=== PATIENT | female | born 2000 | race Caucasian/White ===

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

== ENCOUNTER 2021-02-14 19:38 | Emergency (ER) | payer OTHER ==
[~2021-02-14 19:38] MED LIST changes: +AUGMENTIN 875-875 MG PO
[2021-02-14 20:09] VITALS: BP 140/87
[2021-02-14] MEDS ORDERED: NAPROXEN250 MG PO (20:17)
[2021-02-14] MEDS ORDERED: METHOCARBAMOL500 M1 PO (20:17)
== END 2021-02-14 20:24 | disposition home or self-care (01) ==
LOC: ED 19:38
DX: M54.5 Low back pain (principal); W01.0XXA Fall on same level from slipping, tripping and stumbling without subsequent striking against object, initial encounter; Y93.89 Activity, other specified; Y92.89 Other specified places as the place of occurrence of the external cause; Y99.9 Unspecified external cause status

== ENCOUNTER → 2021-03-25 | Outpatient (CLI) | payer OTHER ==
[~2021-03-25] MED LIST changes: +METHOCARBAMOL500 M1 PO; +NAPROXEN250 MG PO
== END | disposition home or self-care (01) ==
LOC: US 15:00
PROVIDERS: ATTEND Nurse Practitioner Women's Health
DX: N93.9 Abnormal uterine and vaginal bleeding, unspecified (principal)

== ENCOUNTER 2021-06-15 07:28 | Emergency (ER) | payer OTHER ==
[~2021-06-15] VITALS: Wt 45.4 kg
[2021-06-15 07:36] VITALS: BP 121/80
[2021-06-15 08:07] LABS: BASO % 0.1 % (0.0-1.0); EOS # 0.2 10*3/uL (0.0-0.4); EOS % 1.5 % (1.0-4.0); HEMATOCRIT 41.6 % (37.0-47.0); LYMPH # 2.2 10*3/uL (1.3-4.4); LYMPH % 21.7 % (27.0-41.0); MEAN CELL VOLUME 79.2 fl (81.0-99.0); MEAN CORPUSCULAR HGB 24.6 pg (27.0-31.0); MEAN PLATELET VOLUME 9.6 fl (9.6-12.3); MONO # 0.7 10*3/uL (0.1-1.0); MONO % 6.9 % (3.0-9.0); NEUT % 69.5 % (47.0-73.0); PLATELET COUNT AUTOMATED 258 10*3/uL (130-400); RED BLOOD COUNT 5.25 10*6/uL (4.10-5.10); RED CELL DISTRI WIDTH 14.6 % (0-14.5)
[2021-06-15 08:22] LABS: ALBUMIN 3.2 gm/dl (3.1-4.5); ALKALINE PHOSPHATASE 73 U/L (45-117); BUN 9 mg/dl (7-24); CHLORIDE 104 mmol/L (98-107); CREATININE 0.55 mg/dL (0.55-1.02); POTASSIUM 3.7 mmol/L (3.5-5.1); SGOT/AST 14 IU/L (3-35); SGPT/ALT 18 U/L (12-78); SODIUM 138 mmol/L (136-145); TOTAL PROTEIN 6.7 gm/dL (6.4-8.2)
[2021-06-15] MEDS ORDERED: CLINDAMYCIN HC300 MG PO (09:16)
== END 2021-06-15 09:22 | disposition home or self-care (01) ==
LOC: ED 07:28
PROVIDERS: Student in an Organized Health Care Education/Training Program
DX: U07.1 COVID-19 (principal); L03.115 Cellulitis of right lower limb

== ENCOUNTER → 2022-02-01 | Outpatient (CLI) | payer OTHER ==
[2022-02-01 12:44] LABS: HEMATOCRIT 38.6 % (37.0-47.0); MEAN CELL VOLUME 73.4 fl (81.0-99.0); MEAN CORPUSCULAR HGB 22.2 pg (27.0-31.0); MEAN CORPUSCULAR HGB CONC 30.3 g/dl (33.0-37.0); MEAN PLATELET VOLUME 9.7 fl (9.6-12.3); RED BLOOD COUNT 5.26 10*6/uL (4.10-5.10); RED CELL DISTRI WIDTH 14.2 % (0-14.5); WHITE BLOOD COUNT 9.6 10*3/uL (4.8-10.8)
[2022-02-01 12:59] LABS: ALKALINE PHOSPHATASE 87 U/L (45-117); BUN 8 mg/dl (7-24); CHLORIDE 107 mmol/L (98-107); POTASSIUM 3.4 mmol/L (3.5-5.1); SGOT/AST 11 IU/L (3-35); SGPT/ALT 19 U/L (12-78); SODIUM 140 mmol/L (136-145); TOTAL PROTEIN 7.3 gm/dL (6.4-8.2)
== END | disposition home or self-care (01) ==
LOC: LAB 12:17
PROVIDERS: ATTEND Family Medicine
DX: Z86.59 Personal history of other mental and behavioral disorders (principal)

== ENCOUNTER → 2022-10-19 | Outpatient (CLI) | payer OTHER ==
[2022-10-19 15:19] LABS: BASO % 0.6 % (0.0-1.0); EOS % 0.6 % (1.0-4.0); HEMATOCRIT 42.2 % (37.0-47.0); LYMPH # 2.4 10*3/uL (1.3-4.4); LYMPH % 34.9 % (27.0-41.0); MEAN CELL VOLUME 73.6 fl (81.0-99.0); MEAN CORPUSCULAR HGB 21.6 pg (27.0-31.0); MEAN CORPUSCULAR HGB CONC 29.4 g/dl (33.0-37.0); MEAN PLATELET VOLUME 9.7 fl (9.6-12.3); MONO # 0.4 10*3/uL (0.1-1.0); MONO % 5.6 % (3.0-9.0); NEUT # 4.1 10*3/uL (2.3-7.9); PLATELET COUNT AUTOMATED 531 10*3/uL (130-400); RED BLOOD COUNT 5.73 10*6/uL (4.10-5.10)
[2022-10-19 15:48] LABS: ALKALINE PHOSPHATASE 140 U/L (46-116); BUN 8 mg/dl (9-23); CHLORIDE 107 mmol/L (98-107); POTASSIUM 4.3 mmol/L (3.4-5.1); SGPT/ALT 39 U/L (10-49); TOTAL PROTEIN 7.1 gm/dL (6.0-8.0)
== END | disposition home or self-care (01) ==
LOC: LAB 14:25
PROVIDERS: Family Medicine; ATTEND Nurse Practitioner Women's Health
DX: R53.83 Other fatigue (principal); N93.9 Abnormal uterine and vaginal bleeding, unspecified; L63.0 Alopecia (capitis) totalis; L68.0 Hirsutism

== ENCOUNTER → 2022-11-25 | Outpatient (CLI) | payer OTHER | END | disposition home or self-care (01) | LOC: US 12:25 | PROVIDERS: ATTEND Nurse Practitioner Women's Health | DX: N93.9 Abnormal uterine and vaginal bleeding, unspecified (principal) ==

== ENCOUNTER → 2022-12-22 | Outpatient (CLI) | payer OTHER | END | disposition home or self-care (01) | LOC: US 01:31 | PROVIDERS: ATTEND Family Medicine | DX: E05.00 Thyrotoxicosis with diffuse goiter without thyrotoxic crisis or storm (principal) ==

== ENCOUNTER 2023-02-12 09:17 | Emergency (ER) | payer OTHER ==
[~2023-02-12] VITALS: Ht 157.4 cm; Wt 56.7 kg
[2023-02-12 09:33] VITALS: BP 129/66
[2023-02-12] MEDS ORDERED: PREDNISONE50 MG PO (10:04)
== END 2023-02-12 10:18 | disposition home or self-care (01) ==
LOC: ED 09:17
DX: M94.0 Chondrocostal junction syndrome [Tietze] (principal); J45.909 Unspecified asthma, uncomplicated; E03.9 Hypothyroidism, unspecified; Z98.890 Other specified postprocedural states

== ENCOUNTER 2024-02-13 16:58 | Emergency (ER) | payer OTHER ==
[~2024-02-13] VITALS: Ht 154.9 cm; Wt 54.4 kg
[~2024-02-13 16:58] MED LIST changes: +PREDNISONE50 MG PO
[2024-02-13 17:11] VITALS: BP 138/92
[2024-02-13] MEDS ORDERED: CEPHALEXIN500 M1 PO (18:24)
[2024-02-13] MEDS ORDERED: SILVADENE20 GM T (18:24)
[2024-02-13] MEDS ORDERED: SILVER SULFADIAZINE 25 GM TUBE T ONE (18:25)
[2024-02-13] MEDS ORDERED: CEPHALEXIN 500 MG CAP PO ONE (18:25)
== END 2024-02-13 18:30 | disposition home or self-care (01) ==
LOC: ED 16:58
DX: T22.20XA Burn of second degree of shoulder and upper limb, except wrist and hand, unspecified site, initial encounter (principal); J45.909 Unspecified asthma, uncomplicated; E03.9 Hypothyroidism, unspecified; Z86.16 Personal history of COVID-19; T31.0 Burns involving less than 10% of body surface; Z98.890 Other specified postprocedural states; X19.XXXA Contact with other heat and hot substances, initial encounter; Y93.G3 Activity, cooking and baking; Y92.009 Unspecified place in unspecified non-institutional (private) residence as the place of occurrence of the external cause; Y99.8 Other external cause status

== ENCOUNTER → 2024-04-18 | Outpatient (CLI) | payer OTHER ==
[~2024-04-18] MED LIST changes: +CEPHALEXIN500 M1 PO; +SILVADENE20 GM T
[2024-04-18 13:26] LABS: HEMATOCRIT 49.9 % (37.0-47.0); MEAN CELL VOLUME 86.6 fl (81.0-99.0); MEAN CORPUSCULAR HGB CONC 32.3 g/dl (33.0-37.0); MEAN PLATELET VOLUME 8.9 fl (9.6-12.3); RED BLOOD COUNT 5.76 10*6/uL (4.10-5.10); RED CELL DISTRI WIDTH 13.1 % (0-14.5); WHITE BLOOD COUNT 9.8 10*3/uL (4.8-10.8)
[2024-04-18 13:54] LABS: ALKALINE PHOSPHATASE 67 U/L (46-116); BUN 5 mg/dl (9-23); CHLORIDE 104 mmol/L (98-107); FREE T4 1.29 ng/dl (0.89-1.76); POTASSIUM 4.5 mmol/L (3.4-5.1); SGPT/ALT 16 U/L (5-49)
[2024-04-18 14:17] LABS: VITAMIN D, 25-HYDROXY 25.8 ng/mL (30-100)
[2024-04-19 09:07] LABS: THYROID PEROXIDASE (TPO) AB <9 IU/mL (0-34)
[2024-04-19 15:06] LABS: THYROGLOBULIN ANTIBODY <1.0 IU/mL (0.0-0.9)
[2024-04-20 16:06] LABS: THYROTROPIN RECEPTOR AB 1.95 IU/L (0.00-1.75)
== END | disposition home or self-care (01) ==
LOC: LAB 13:06
PROVIDERS: ATTEND Family Medicine
DX: R00.2 Palpitations (principal); E03.9 Hypothyroidism, unspecified; R53.82 Chronic fatigue, unspecified; E55.9 Vitamin D deficiency, unspecified

== ENCOUNTER 2024-08-05 02:58 | Emergency (ER) | payer OTHER ==
[~2024-08-05] VITALS: Ht 154.9 cm; Wt 45.4 kg
[2024-08-05] MEDS ORDERED: Naloxone Hydrochloride 2 MG/2 ML SYR NAS ONE ×2 (03:25)
[2024-08-05 03:49] LABS: BILIRUBIN Negative (Negative); BLOOD Negative (Negative); CLARITY Cloudy (Clear); COLOR Yellow (Yellow); GLUCOSE Negative (Negative); KETONE 3+ (Negative); LEUKO ESTERASE Negative (Negative); NITRITE Negative (Negative); SPECIFIC GRAVITY 1.025 (1.001-1.030)
[2024-08-05 03:50] LABS: BASO # 0.1 10*3/uL (0.0-0.1); BASO % 0.3 % (0.0-1.0); EOS % 0.1 % (1.0-4.0); HEMATOCRIT 49.5 % (37.0-47.0); MEAN CELL VOLUME 84.2 fl (81.0-99.0); MEAN CORPUSCULAR HGB 28.2 pg (27.0-31.0); MEAN CORPUSCULAR HGB CONC 33.5 g/dl (33.0-37.0); MEAN PLATELET VOLUME 9.3 fl (9.6-12.3); MONO # 0.7 10*3/uL (0.1-1.0); MONO % 3.2 % (3.0-9.0); NEUT # 19.6 10*3/uL (2.3-7.9); NEUT % 85.5 % (47.0-73.0); PLATELET COUNT AUTOMATED 505 10*3/uL (130-400); RED BLOOD COUNT 5.88 10*6/uL (4.10-5.10); RED CELL DISTRI WIDTH 12.7 % (0-14.5); WHITE BLOOD COUNT 22.9 10*3/uL (4.8-10.8)
[2024-08-05] MEDS ORDERED: SODIUM CHLORIDE 0.9% 1,000 ML IV ONE ×2 (03:55→07:05)
[2024-08-05 03:57] LABS: URINE AMPHETAMINES Negative (1000ng/ml); URINE BARBITURATES Negative (200ng/ml); URINE BENZODIAZEPINES Negative (200ng/ml); URINE CANNABINOIDS (THC) Positive (50ng/ml); URINE COCAINE Positive (300ng/ml); URINE METHADONE Negative (300ng/ml); URINE OPIATES Negative (300ng/ml); URINE PHENCYCLIDINE Negative (25ng/ml)
[2024-08-05 04:00] LABS: ACT PARTIAL THROMBO TIME 25.7 SECONDS (20.0-32.1)
[2024-08-05 04:10] LABS: PH >= 9.0 (4.5-8.0)
[2024-08-05 04:11] LABS: BACTERIA 1+; EPITHELIAL CELLS 41-50; WBC 0-2 wbc/hpf (0-5)
[2024-08-05 04:22] LABS: ALKALINE PHOSPHATASE 72 U/L (46-116); BUN 6 mg/dl (9-23); CHLORIDE 105 mmol/L (98-107); LIPASE 28 U/L (12-53); POTASSIUM 3.6 mmol/L (3.4-5.1); SGPT/ALT 12 U/L (5-49); TOTAL PROTEIN 7.8 gm/dL (6.0-8.0)
[2024-08-05 04:41] LABS: ETHYL ALCOHOL < 3.0 mg/dl (<3)
[2024-08-05] MEDS ORDERED: Ondansetron Hydrochloride 4 MG/2 ML VIAL IV ONE (05:30)
[2024-08-05] MEDS ORDERED: ATROPINE SULFATE IV ONE ×2 (05:45→05:50)
[2024-08-05] MEDS ORDERED: ATROPINE SULFATE 1 MG/10 ML SYR IV ONE (06:10)
[2024-08-05 06:38] VITALS: BP 109/66
[2024-08-05] MEDS ORDERED: Ondansetron4 MG SL (08:16)
== END 2024-08-05 08:00 | disposition home or self-care (01) ==
LOC: ED 02:58
PROVIDERS: Internal Medicine
DX: R11.2 Nausea with vomiting, unspecified (principal); R10.2 Pelvic and perineal pain; F19.10 Other psychoactive substance abuse, uncomplicated; Z87.891 Personal history of nicotine dependence; Z98.890 Other specified postprocedural states; Z79.899 Other long term (current) drug therapy

== ENCOUNTER 2024-12-10 19:07 | Emergency (ER) | payer SELFPAY ==
[~2024-12-10] VITALS: Ht 154.9 cm; Wt 59.0 kg
[~2024-12-10 19:07] MED LIST changes: +Ondansetron4 MG SL
[2024-12-10 19:33] VITALS: BP 122/79
[2024-12-10] MEDS ORDERED: CEPHALEXIN 500 MG CAP PO ONE (23:25)
[2024-12-10] MEDS ORDERED: VIBRAMYCIN100 MG PO (23:25)
[2024-12-10] MEDS ORDERED: CEPHALEXIN500 M1 PO (23:25)
== END 2024-12-10 23:38 | disposition home or self-care (01) ==
LOC: ED 19:07
DX: L02.415 Cutaneous abscess of right lower limb (principal); J45.909 Unspecified asthma, uncomplicated; E03.9 Hypothyroidism, unspecified; Z79.899 Other long term (current) drug therapy

== ENCOUNTER 2025-02-11 19:43 | Emergency (ER) | payer SELFPAY ==
[~2025-02-11] VITALS: Ht 154.9 cm; Wt 59.0 kg
[2025-02-11 19:55] VITALS: BP 117/92
[2025-02-11] MEDS ORDERED: PRILOSEC20 M1 PO (19:55)
[2025-02-11] MEDS ORDERED: SODIUM CHLORIDE 0.9% 1,000 ML IV ONE (20:05)
[2025-02-11] MEDS ORDERED: Ondansetron Hydrochloride 4 MG/2 ML VIAL IV ONE (20:05)
[2025-02-11] MEDS ORDERED: Ondansetron4 MG PO (21:46)
== END 2025-02-11 22:00 | disposition home or self-care (01) ==
LOC: ED 19:43
DX: B34.9 Viral infection, unspecified (principal); R11.2 Nausea with vomiting, unspecified; Z79.899 Other long term (current) drug therapy

== ENCOUNTER 2025-04-08 14:21 | Emergency (ER) | payer SELFPAY ==
[~2025-04-08] VITALS: Ht 154.9 cm
[~2025-04-08 14:21] MED LIST changes: +Ondansetron4 MG PO; +PRILOSEC20 M1 PO
[2025-04-08 14:31] VITALS: BP 113/90
[2025-04-08] MEDS ORDERED: Ondansetron Hydrochloride 4 MG TAB PO ONE (14:40)
[2025-04-08] MEDS ORDERED: Tdap Vaccine 0.5 ML SYR (Adult Vaccine) IM ONE (15:25)
[2025-04-08] MEDS ORDERED: CLEOCIN HCL150 MG PO (15:31)
[2025-04-08] MEDS ORDERED: Ondansetron4 MG PO (15:31)
== END 2025-04-08 15:49 | disposition home or self-care (01) ==
LOC: ED 14:21
DX: S61.210A Laceration without foreign body of right index finger without damage to nail, initial encounter (principal); F50.20 Bulimia nervosa, unspecified; K04.7 Periapical abscess without sinus; J45.909 Unspecified asthma, uncomplicated; E03.9 Hypothyroidism, unspecified; W26.0XXA Contact with knife, initial encounter; Y93.89 Activity, other specified; Y92.89 Other specified places as the place of occurrence of the external cause; Y99.8 Other external cause status

== ENCOUNTER 2025-04-21 07:29 | Emergency (ER) | payer SELFPAY ==
[~2025-04-21] VITALS: Ht 154.9 cm; Wt 45.4 kg
[~2025-04-21 07:29] MED LIST changes: +CLEOCIN HCL150 MG PO
[2025-04-21 08:13] VITALS: BP 123/72
[2025-04-21] MEDS ORDERED: Promethazine Hydrochloride 25 MG/ML VIAL IM ONE (08:30)
[2025-04-21] MEDS ORDERED: Promethazine Hydrochloride 25 MG/ML VIAL ONE (09:03)
[2025-04-21 09:22] LABS: BUN 8 mg/dl (9-23); SGPT/ALT 10 U/L (5-49)
[2025-04-21] MEDS ORDERED: Phenergan25 MG PO ×2 (10:37→10:38)
== END 2025-04-21 10:42 | disposition home or self-care (01) ==
LOC: ED 07:29
PROVIDERS: Emergency Medicine
DX: K29.70 Gastritis, unspecified, without bleeding (principal); R11.10 Vomiting, unspecified; Z79.899 Other long term (current) drug therapy

== ENCOUNTER 2025-04-23 14:11 | Emergency (ER) | payer SELFPAY ==
[~2025-04-23] VITALS: Ht 154.9 cm; Wt 45.4 kg
[~2025-04-23 14:11] MED LIST changes: +Phenergan25 MG PO
[2025-04-23 14:18] VITALS: BP 115/73
[2025-04-23] MEDS ORDERED: KEFLEX 500 MG E2 CAP PO (14:41)
[2025-04-23] MEDS ORDERED: SEPTDS PO (14:41)
== END 2025-04-23 14:50 | disposition home or self-care (01) ==
LOC: ED 14:11
DX: L03.213 Periorbital cellulitis (principal); J45.909 Unspecified asthma, uncomplicated; E03.9 Hypothyroidism, unspecified